=== PATIENT | male | born 1965 | race Hispanic/Latino ===

== ENCOUNTER 2023-10-10 21:30 | Emergency (ER) | payer OTHER, SELFPAY ==
[2023-10-10 21:31] VITALS: BMI 25.6
[2023-10-10 21:32] VITALS: BP 164/88
--- NOTE | 2023-10-10 22:05 | ED.GENMED ---
History of Present Illness
General
Chief Complaint: Blood Pressure Problem
Source: patient
Exam Limitations: none
Time Seen by Provider: 10/10/23 21:44
Travel History
Have you had any contact with someone who has COVID-19?: No
Do you have any symptoms of coronavirus? Fever > 100 degrees, chills, cough, shortness of breath, sore throat, loss of taste or smell, muscle aches, or headache?: No
History of Present Illness
History of Present Illness:
This is a 58 year old male that comes in with multiple complaints. States that on Wednesday he went to see the PCP and his BP was high. State that he had been eating a lot of junk. States that the PCP told him to stop the junk and buy a BP machine to
check his BP daily. State that Wednesday- he was checking his BP and it remained elevated. Patient went back to the PCP on and he was started on Losartan 50mg daily. Patient also takes Amlodipine 10mg daily. States that he felt his BP
was still high and he has a sore throat. States that he also has a headache that goes across his forehead and he felt lightheaded. Denies any fever, chills, chest pain, SOB, abd pain, nausea, vomiting, diarrhea, dizziness, urinary burning.
Past History
Past History
ED Past Medical History: CVA, GERD, HTN, Hypercholesterolemia, NIDDM and Other (Chronic back pain, Cystitis, Pancreatitis, UTI, )
ED Past Surgical History: Orthopedic (Cervical fusion 12/04, circumcision, 2008), Urological (TURP) and Other (Guilherme fundoplication, umbilical hernia 2003)
Patient has exhibited threatening behavior?: No
Social History
Tobacco: Former smoker
Alcohol: None
Drug: None
Personal: Single (Common law marrage)
Living: with family
Employment: Not employed
Family History
Family History: CAD and Other ([employer] lymphoma)
Review of Systems
Review of Systems
All Other Systems: ROS reviewed and negative except as documented in HPI and ROS
Constitutional: Reports no symptoms; Denies fever or chills
EENT: Reports no symptoms
Respiratory: Reports no symptoms; Denies cough or trouble breathing
Cardiac: Reports no symptoms; Denies chest pain
ABD/GI: Reports no symptoms; Denies abdominal pain, nausea, vomiting or diarrhea
: Reports no symptoms; Denies dysuria, frequency or urgency
Musculoskeletal: Reports no symptoms
Skin: Reports no symptoms
Neurological: Reports headache; Denies dizzy
Psychiatric: Reports no symptoms
Phy Exam
General Physical Exam
General Presentation: well appearing and no apparent distress
General age: appears stated age
General Skin: warm and dry
General Habitus: normal
General Mental: alert
General Hydration: appears well hydrated
ENT Exam
ENT Exam: TM's normal, pharynx normal and neck supple
Eye Exam
Eye Exam: EOMI
Cardiovascular Exam
Cardiovascular Exam: regular rate/rhythm, no edema and normal peripheral pulses
Pulmonary Exam
Pulmonary Exam: lungs clear, no respiratory distress, no rales, chest non tender, no crackles, no rhonchi, no wheezing and no cough
Gastrointestinal Exam
Gastrointestinal Exam: normal bowel sounds, non tender, soft, no organomegaly, no pulsatile mass and non distended
Musculoskeletal Exam
Musculoskeletal Exam: full ROM (watch patient walk down hallway, steady on his feet) and no edema
Skin Exam
Skin Exam: normal color, warm/dry, no rash and no petechia
Psychiatric Exam
Psychiatric Exam: normal mood/affect
Course
Orders/Labs/Results
Orders:
Orders
10/10/23 22:05
Acetaminophen [Tylenol] 1,000 mg PO NOW STA
10/10/23 22:19
COVID-19 Antigen Urgent
Source: Nasal Swab
Complete Blood Count/With Diff Urgent
Comprehensive Metabolic Panel Urgent
10/10/23 22:24
Rapid Strep Group A Urgent
RUPERT Source: Throat/Pharynx
Specimen Description:
Date Specimen was Collected: 10/10/23
Time Specimen was Collected: 22:22
10/10/23 22:48
Diphenhydramine [Benadryl] 50 mg IV NOW STA
Famotidine [Pepcid] 20 mg IV NOW STA
Abnormal Lab Results
10/10/23
22:19
Absolute Monos (auto) 0.9 H 10^3/uL
(0.1-0.6)
Lymphocytes % 18.2 L %
(20.5-51.1)
Monocytes % 10.2 H %
(1.7-9.3)
Chloride 108 H mmol/L
(98-107)
BUN 22 H mg/dl
(9-20)
Glucose 142 H mg/dl
(70-99)
Alkaline Phosphatase 141 H U/L
(38-126)
10/10/23 22:19
10/10/23 22:19
Dehydration. Glucose nonfasting. Alk phos elevation. COVID negative. rapid strep negative.
Vital Signs
Initial and Last Documented VS:
Initial Vital Signs
Temp Pulse Resp BP Pulse Ox
98.1 F 78 22 164/88 96
10/10/23 21:32 10/10/23 21:32 10/10/23 21:32 10/10/23 21:32 10/10/23 21:32
Last Documented Vital Signs
Temp Pulse Resp BP Pulse Ox
98.1 F 85 20 144/86 97
10/10/23 21:32 10/10/23 22:32 10/10/23 22:32 10/10/23 22:32 10/10/23 23:18
MDM/Problems Addressed
Differential Diagnosis Includes:
COVID, Viral syndrome. Headache
MDM/Problems Addressed:
This is a 58 year old male that comes in with multiple complaints. States that his BP has been elevated and he has seen his PCP twice this past week. States that he was started on Losartan 50mg along with his Amlodipine 10mg. States that he felt his
BP was still high and he has a headache across his forehead and a sore throat.
Will check labs, COVID and rapid strep. Will monitor BP .
Called back into see patient. Patient feels that he is having an allergic reaction as he has a hive on the right cheek and below the right ear. Patient was not given any medication here. Will give Benadryl.
Back into see patient. Patient BP is 122/82. Patient two hives are also gone along with his headache. Will have patient follow up with the family doctor. Continue wit his BP medication as prescribed. Tylenol or any headache pain. Return with any
concerns.
Chronic conditions affecting care: HTN
Acute Exacerbation and/or Progression of Chronic Illness:
NA
*Pulse Oximetry
Patient hypoxic: no
*EKG
Interpreted by ED Provider?: NA
Rate: EKG- N/A
*Critical Care Note
Total Time (30-74mins, 75-104mins- exclusive of procedures): Not Applicable
ED Attending Note
-
Portions of this chart may have been created with voice recognition software.� Occasional wrong word or��sound alike� substitutions may have occurred due to the inherent limitations of voice recognition software.
Discharge Plan
Departure
Patient Disposition: Home (Routine Discharge)
Date of Disposition: 10/11/23
Time of Disposition: 00:02
Patient with high blood pressure during this ER visit?: Yes
Condition: Good
Covid-19: Not Applicable
Discharge Problem:
Hypertension, Sore throat (viral), Headache
Instructions: Sore Throat, Adult (DC), Headache, Adult (DC), BLOOD PRESSURE
Prescriptions:
No Action
oxycodone-acetaminophen [Percocet] 1 EACH tablet
1 ea PO Q6HPRN PRN (Reason: severe pain)
atorvastatin 10 MG tablet
10 mg PO QPM
oxycodone [OxyContin] 40 MG tablet,oral only,ext.rel.12 hr
40 mg PO Q8HPRN PRN (Reason: severe pain)
amlodipine 10 MG tablet
10 mg PO DAILY Qty: 30 0RF
tamsulosin 0.4 MG capsule
0.4 mg PO DAILY
finasteride 5 MG tablet
5 mg PO DAILY
empagliflozin [Jardiance] 25 MG tablet
25 mg PO DAILY
Referrals:
Can Oneal DO [Family Provider] - Follow up in 2-3 days
Activity Restrictions/Additional Instructions:
As discussed, your blood work shows slight Dehydration. You are COVID negative and your rapid strep is negative. Please increase your water intake to 8-8oz daily. No junk food. Continue with the medication you were prescribed by your family doctor
for your blood pressure. Follow up with the family doctor in the next 2- 3 days. This may be something viral starting that has caused your sore throat and a headache. You may use Tylenol 1000mg every 6 hours for any headache pain. IF YOU HAVE ANY
OTHER CONCERNS PLEASE RETURN TO THE EMERGENCY ROOM.
Interventions
Interventions:
*Risk Screen - Suicide Last Done: 10/10/23 21:32
*General Assessment Last Done: 10/10/23 22:32
*Neglect/Abuse Screening Last Done: 10/10/23 21:32
*ED COVID-19 Vaccine History Last Done: 10/10/23 22:32
ED- Cardiac Assessment Last Done: 10/10/23 22:34
ED-EENT Assessment Last Done: 10/10/23 22:40
ED- Neurological Assessment Last Done: 10/10/23 22:40
ED- Pulmonary Assessment Last Done: 10/10/23 22:40
[2023-10-10] MEDS: TYLENOL 1000 MG PO (22:12)
[2023-10-10 22:28] LABS: % Basophils 0.8 % (0-2); % Eosinophils 4.5 % (0-6); % Immature Granulocytes 0.3 % (0-0.5); % Lymphocytes 18.2 % (20.5-51.1); % Monocytes 10.2 % (1.7-9.3); Absolute Basophils 0.1 10^3/uL (0-0.2); Absolute Eosinophils 0.4 10^3/uL (0-0.7); Absolute Lymphocytes 1.7 10^3/uL (1.2-3.4); Absolute Monocytes 0.9 10^3/uL (0.1-0.6); Hematocrit 41.7 % (39.0-52.0); Hemoglobin 14.3 g/dL (13.0-18.0); Mean Corp Hgb Conc. 34.3 g/dL (33.0-37.0); Mean Corpuscular Hgb 28.9 pg (27.0-31.0); Mean Corpuscular Volume 84.2 fL (80.0-94.0); Mean Platelet Volume 10.2 fL (7.4-10.4); Nucleated Red Blood Cells % 0 % (-); Platelet Count 288 10^3/uL (130-400); Red Blood Cell Count 4.95 10^6/uL (4.70-6.10); Red Cell Dist. Width 13.2 % (11.5-14.5); White Blood Cell Count 9.1 10^3/uL (4.8-10.8)
[2023-10-10 22:32] VITALS: BP 144/86
[2023-10-10 22:43] LABS: ALT (SGPT) 34 U/L (0-50); AST (SGOT) 27 U/L (17-59); Alkaline Phosphatase 141 U/L (38-126); Blood Urea Nitrogen 22 mg/dl (9-20); Calcium 8.9 mg/dl (8.4-10.2); Carbon Dioxide 23 mmol/L (22-30); Chloride 108 mmol/L (98-107); Glucose 142 mg/dl (70-99); Potassium 3.5 mmol/L (3.5-5.1); Sodium 135 mmol/L (135-145); Total Bilirubin 0.5 mg/dl (0.2-1.3); Total Protein 6.9 g/dl (6.3-8.2); eGFR > 60.00
[2023-10-10 22:48] LABS: COVID-19 Antigen Negative (Negative)
[2023-10-10] MEDS: PEPCID 20 MG IV (23:04)
[2023-10-10] MEDS: BENADRYL 50 MG IV (23:06)
[2023-10-11] VITALS: BP 122/82
== END 2023-10-11 00:15 | disposition home or self-care (01) ==
LOC: EMR 21:30
PROVIDERS: Clinical Nurse Specialist Family Health; EMERGENCY PHYSICIAN Student in an Organized Health Care Education/Training Program; FAMILY PHYSICIAN Family Medicine
DX: R51.9 Headache, unspecified (principal); J02.9 Acute pharyngitis, unspecified; I10 Essential (primary) hypertension; Z87.891 Personal history of nicotine dependence
CPT/HCPCS: 99284; 96374; 96375; 80053; 85025; 87070; 87811; 87880

== ENCOUNTER 2023-11-09 20:12 | Emergency (ER) | payer OTHER, SELFPAY ==
[2023-11-09 20:43] VITALS: BP 131/85
--- NOTE | 2023-11-09 20:50 | ED.GENMED ---
History of Present Illness
General
Chief Complaint: Fever
Source: patient
Time Seen by Provider: 11/09/23 20:30
Travel History
Have you had any contact with someone who has COVID-19?: No
Do you have any symptoms of coronavirus? Fever > 100 degrees, chills, cough, shortness of breath, sore throat, loss of taste or smell, muscle aches, or headache?: No
History of Present Illness
History of Present Illness:
58-year-old male presents emergency room complaining of abdominal pain. Patient began having abdominal pain about 24 hours ago. He had a temperature at home of 104.5. He has had multiple sets of nausea, vomiting and diarrhea. Patient's daughter
was sick with GI symptoms earlier in the week. No urinary symptoms. Patient states the pain waxes and wanes in intensity
Past History
Past History
ED Past Medical History: CVA, GERD, HTN, Hypercholesterolemia, NIDDM and Other (Chronic back pain, Cystitis, Pancreatitis, UTI, )
ED Past Surgical History: Orthopedic (Cervical fusion 12/04, circumcision, 2008), Urological (TURP) and Other (Guilherme fundoplication, umbilical hernia 2003)
Patient has exhibited threatening behavior?: No
Social History
Tobacco: Former smoker
Alcohol: None
Drug: None
Personal: Single (Common law marrage)
Living: with family
Employment: Not employed
Family History
Family History: CAD and Other ([employer] lymphoma)
Phy Exam
Physical Exam
Physical Exam:
General: Awake, Alert, Oriented X3. No acute distress.
Vitals: unremarkable
Head: Atraumatic
Eyes: Pupils equal, EOMI
Throat: Airway intact, no exudates
Neck: Trachea midline
Lungs: Clear and equal b/l
Heart: Regular rate, no murmurs
Abd: Soft, mild diffuse tenderness, No pulsatile mass
Neuro: Nonfocal
Skin: Warm, dry, no rash
Extremities: pulses equal b/l, no edema
Course
Orders/Labs/Results
Orders:
Orders
11/09/23 20:48
0.9% Sodium Chloride 1000 ml [Nss] 1,000 ml IV BOLUS
Ketorolac [Toradol] 15 mg IV NOW STA
Ondansetron Injectable [Zofran] 4 mg IV NOW STA
11/09/23 20:50
CT Abd/pelvis W Iv Cont Urgent
Comment:
Reason For Exam: abd pain
11/09/23 21:00
Complete Blood Count/With Diff Urgent
Comprehensive Metabolic Panel Urgent
Lipase Urgent
11/09/23 21:32
Urinalysis Reflex To Culture Urgent
Date Specimen was Collected: 11/09/23
Time Specimen was Collected: 21:31
Urine Microscopic Reflex Cult Urgent
11/09/23 22:36
Dicyclomine [Bentyl] 20 mg PO NOW STA
HYDROmorphone [Dilaudid] 1 mg IV NOW STA
Abnormal Lab Results
11/09/23 11/09/23
21:00 21:32
Abs Immat Gran (auto) 0.1 H 10^3/uL
(0-0.05)
Absolute Neuts (auto) 8.4 H 10^3/uL
(1.4-6.5)
Absolute Lymphs (auto) 0.3 L 10^3/uL
(1.2-3.4)
Absolute Monos (auto) 0.8 H 10^3/uL
(0.1-0.6)
Neutrophils % 86.9 H %
(42.2-75.2)
Lymphocytes % 3.3 L %
(20.5-51.1)
Sodium 132 L mmol/L
(135-145)
Carbon Dioxide 16 L mmol/L
(22-30)
BUN 28 H mg/dl
(9-20)
Glucose 138 H mg/dl
(70-99)
ALT 57 H U/L
(0-50)
Urine Ketones 1+ A
(Negative)
Ur Occult Blood Reflex 2+ A
(Negative)
Urine RBC 3-6 A /HPF
(0-2)
Urine Bacteria (Reflex) Few A
(Negative)
Urine Glucose 3+ A
(Negative)
11/09/23 21:00
11/09/23 21:00
Vital Signs
Initial and Last Documented VS:
Initial Vital Signs
Temp Pulse Resp Pulse Ox
99.9 F 98 20 97
11/09/23 20:34 11/09/23 20:34 11/09/23 20:34 11/09/23 20:34
Last Documented Vital Signs
Temp Pulse Resp BP Pulse Ox
99.9 F 90 18 114/76 97
11/09/23 20:34 11/09/23 22:05 11/09/23 22:05 11/09/23 22:04 11/09/23 22:05
MDM/Problems Addressed
Differential Diagnosis Includes:
Viral gastritis, colitis, appendicitis
MDM/Problems Addressed:
Labs unremarkable, CT unremarkable. Based on symptoms very suggestive of acute viral gastroenteritis. Symptomatic care with antiemetics, antispasmodics
Acute Exacerbation and/or Progression of Chronic Illness: Other (Chronic pain syndrome)
*Radiology
Radiology exam reviewed: radiology read reviewed
*Pulse Oximetry
Patient hypoxic: no
*Critical Care Note
Total Time (30-74mins, 75-104mins- exclusive of procedures): Not Applicable
ED Attending Note
-
Portions of this chart may have been created with voice recognition software.� Occasional wrong word or��sound alike� substitutions may have occurred due to the inherent limitations of voice recognition software.
Discharge Plan
Departure
Patient Disposition: Home (Routine Discharge)
Date of Disposition: 11/09/23
Time of Disposition: 22:56
Patient with high blood pressure during this ER visit?: No
Condition: Good
Discharge Problem:
Acute diarrhea, Gastroenteritis, Acute nausea with nonbilious vomiting
Instructions: Viral gastroenteritis in adults
Prescriptions:
New
dicyclomine 20 mg tablet
20 mg PO QID PRN (Reason: abdominal pain) Qty: 20 0RF
ondansetron 4 mg tablet,disintegrating
4 mg PO ONCE PRN (Reason: nausea and vomiting) Qty: 10 0RF
No Action
oxycodone-acetaminophen [Percocet] 1 EACH tablet
1 ea PO Q6HPRN PRN (Reason: severe pain)
atorvastatin 10 MG tablet
10 mg PO QPM
oxycodone [OxyContin] 40 MG tablet,oral only,ext.rel.12 hr
10 mg PO Q8HPRN PRN (Reason: severe pain)
amlodipine 10 MG tablet
10 mg PO DAILY Qty: 30 0RF
finasteride 5 MG tablet
5 mg PO DAILY
Jardiance 25 MG tablet
25 mg PO DAILY
losartan 50 mg Tablet
50 mg PO DAILY
Rinvoq 15 mg Tablet Extended Release 24 Hr
15 mg PO DAILY
Referrals:
Can Oneal DO [Family Provider] -
Interventions
Interventions:
*Risk Screen - Suicide Last Done: 11/09/23 20:13
*General Assessment Last Done: 11/09/23 20:13
*Neglect/Abuse Screening Last Done: 11/09/23 20:13
ED- Fall Risk Assessment Last Done: 11/09/23 20:44
*ED COVID-19 Vaccine History Last Done: 11/09/23 20:13
*Nursing Disposition Last Done: 11/09/23 23:06
ED- Neurological Assessment Last Done: 11/09/23 20:44
ED-Skin Assessment Last Done: 11/09/23 20:44
Discharge Date and Time
Discharge Date/Time: 11/09/23 23:07
[2023-11-09] MEDS: TORADOL 15 MG IV (20:57)
[2023-11-09] MEDS: NSS 1000 IV (20:57)
[2023-11-09] MEDS: ZOFRAN 4 MG IV (20:58)
[2023-11-09 21:00] VITALS: BP 120/70
[2023-11-09 21:09] LABS: % Basophils 0.3 % (0-2); % Eosinophils 0.8 % (0-6); % Immature Granulocytes 0.5 % (0-0.5); % Lymphocytes 3.3 % (20.5-51.1); % Monocytes 8.2 % (1.7-9.3); % Neutrophils 86.9 % (42.2-75.2); Absolute Eosinophils 0.1 10^3/uL (0-0.7); Absolute Immature Granulocytes 0.1 10^3/uL (0-0.05); Absolute Lymphocytes 0.3 10^3/uL (1.2-3.4); Absolute Monocytes 0.8 10^3/uL (0.1-0.6); Absolute Neutrophils 8.4 10^3/uL (1.4-6.5); Hematocrit 42.5 % (39.0-52.0); Hemoglobin 14.5 g/dL (13.0-18.0); Mean Corp Hgb Conc. 34.1 g/dL (33.0-37.0); Mean Corpuscular Hgb 28.9 pg (27.0-31.0); Mean Corpuscular Volume 84.7 fL (80.0-94.0); Mean Platelet Volume 10.2 fL (7.4-10.4); Nucleated Red Blood Cells % 0 % (-); Platelet Count 248 10^3/uL (130-400); Red Blood Cell Count 5.02 10^6/uL (4.70-6.10); Red Cell Dist. Width 13.5 % (11.5-14.5); White Blood Cell Count 9.7 10^3/uL (4.8-10.8)
[2023-11-09 21:23] LABS: ALT (SGPT) 57 U/L (0-50); AST (SGOT) 28 U/L (17-59); Albumin 4.2 g/dl (3.5-5.0); Alkaline Phosphatase 94 U/L (38-126); Blood Urea Nitrogen 28 mg/dl (9-20); Calcium 8.9 mg/dl (8.4-10.2); Carbon Dioxide 16 mmol/L (22-30); Chloride 102 mmol/L (98-107); Glucose 138 mg/dl (70-99); Potassium 3.6 mmol/L (3.5-5.1); Sodium 132 mmol/L (135-145); Total Bilirubin 0.9 mg/dl (0.2-1.3); eGFR > 60.00
[2023-11-09 21:25] LABS: Lipase 80 U/L (23-300)
[2023-11-09 21:38] LABS: Urine Albumin Trace (Neg - Trace); Urine Bilirubin Negative (Negative); Urine Character Clear (Clear); Urine Color Yellow; Urine Glucose 3+ (Negative); Urine Ketone 1+ (Negative); Urine Leukocyte Negative (Negative); Urine Nitrite Negative (Negative); Urine Occult Blood 2+ (Negative); Urine Urobilinogen Negative (Neg - 1+)
[2023-11-09 21:57] LABS: Urine Squamous Cell 0-2 /LPF (Few)
[2023-11-09 21:58] LABS: Urine Bacteria Few (Negative); Urine White Cell 0-2 /HPF (0-5)
[2023-11-09 22:04] VITALS: BP 114/76
[2023-11-09] MEDS: BENTYL 20 MG PO (22:44)
[2023-11-09] MEDS: DILAUDID 1 MG IV (22:44)
== END 2023-11-09 23:07 | disposition home or self-care (01) ==
LOC: EMR 20:12
PROVIDERS: EMERGENCY PHYSICIAN Emergency Medicine; FAMILY PHYSICIAN Family Medicine
DX: A08.4 Viral intestinal infection, unspecified (principal); R19.7 Diarrhea, unspecified; R11.2 Nausea with vomiting, unspecified
CPT/HCPCS: 99285; 96374; 96375 ×2; 96361; 74177; 80053; 81003; 81015; 83690; 85025; Q9967

== ENCOUNTER → 2024-11-01 07:08 | Outpatient (REF) | payer OTHER, SELFPAY ==
[2024-11-01 09:51] LABS: % Basophils 0.6 % (0-2); % Eosinophils 3.1 % (0-6); % Immature Granulocytes 0.6 % (0-0.5); % Lymphocytes 17.9 % (20.5-51.1); % Monocytes 9.9 % (1.7-9.3); % Neutrophils 67.9 % (42.2-75.2); Absolute Basophils 0.1 10^3/uL (0-0.2); Absolute Eosinophils 0.3 10^3/uL (0-0.7); Absolute Immature Granulocytes 0.1 10^3/uL (0-0.05); Absolute Lymphocytes 1.7 10^3/uL (1.2-3.4); Absolute Monocytes 0.9 10^3/uL (0.1-0.6); Absolute Neutrophils 6.4 10^3/uL (1.4-6.5); Hematocrit 44.8 % (39.0-52.0); Mean Corp Hgb Conc. 33.5 g/dL (33.0-37.0); Mean Corpuscular Hgb 29.4 pg (27.0-31.0); Mean Corpuscular Volume 87.7 fL (80.0-94.0); Mean Platelet Volume 10.8 fL (7.4-10.4); Nucleated Red Blood Cells % 0 % (-); Platelet Count 289 10^3/uL (130-400); Red Blood Cell Count 5.11 10^6/uL (4.70-6.10); Red Cell Dist. Width 13.1 % (11.5-14.5); White Blood Cell Count 9.4 10^3/uL (4.8-10.8)
[2024-11-01 11:51] LABS: Glycohemoglobin (HgbA1c) 6.7 % (4.0-5.6)
[2024-11-01 12:47] LABS: ALT (SGPT) 30 U/L (0-50); AST (SGOT) 23 U/L (17-59); Albumin 4.6 g/dl (3.5-5.0); Alkaline Phosphatase 110 U/L (38-126); Blood Urea Nitrogen 19 mg/dl (9-20); Calcium 9.1 mg/dl (8.4-10.2); Carbon Dioxide 21 mmol/L (22-30); Chloride 104 mmol/L (98-107); Glucose 113 mg/dl (70-99); Potassium 3.9 mmol/L (3.5-5.1); Sodium 138 mmol/L (135-145); Total Bilirubin 0.7 mg/dl (0.2-1.3); Total Protein 7.2 g/dl (6.3-8.2); eGFR > 60.00
== END ==
LOC: HWLAB 07:08
PROVIDERS: ATTENDING PHYSICIAN Podiatrist Foot Surgery
DX: Z01.818 Encounter for other preprocedural examination (principal)
CPT/HCPCS: 36415; 80053; 83036; 85025; 93005

== ENCOUNTER → 2024-11-20 16:06 | Outpatient (REF) | payer OTHER, SELFPAY | LOC: CLAB 16:06 | PROVIDERS: ATTENDING PHYSICIAN Podiatrist Foot Surgery | DX: R22.41 Localized swelling, mass and lump, right lower limb (principal) | CPT/HCPCS: 88304 ==

== ENCOUNTER 2025-06-25 20:38 | Observation (INO) | payer OTHER, SELFPAY ==
[2025-06-25 15:37] VITALS: BP 136/82
[2025-06-25 15:52] LABS: Hematocrit 46.4 % (39.0-52.0); Hemoglobin 15.2 g/dL (13.0-18.0); Mean Corp Hgb Conc. 32.8 g/dL (33.0-37.0); Mean Corpuscular Volume 88.4 fL (80.0-94.0); Nucleated Red Blood Cells % 0 % (-); Platelet Count 278 10^3/uL (130-400); Red Cell Dist. Width 13.0 % (11.5-14.5)
[2025-06-25 16:06] VITALS: BMI 26.6
[2025-06-25 16:08] LABS: ALT (SGPT) 39 U/L (0-50); AST (SGOT) 27 U/L (17-59); Albumin 4.5 g/dl (3.5-5.0); Alkaline Phosphatase 108 U/L (38-126); Blood Urea Nitrogen 15 mg/dl (9-20); Calcium 9.0 mg/dl (8.4-10.2); Carbon Dioxide 25 mmol/L (22-30); Chloride 105 mmol/L (98-107); Estimated Creatinine Clearance 95 ml/min; Glucose 114 mg/dl (70-99); Potassium 3.7 mmol/L (3.5-5.1); Sodium 138 mmol/L (135-145); Total Protein 7.3 g/dl (6.3-8.2); eGFR > 60.00
[2025-06-25 16:42] VITALS: BP 148/86; BP 154/91; BP 161/89; PULSE 63; PULSE 65; PULSE 71
--- NOTE | 2025-06-25 16:43 | ED.GENMED ---
Addendum entered and electronically signed by Rios Nash MD 06/26/25 00:37:
ED Attending Note:
Patient with history of CVA, confirmed on MRI over 10 years ago, without any residual deficit, presents to ED secondary to sudden onset of blurred vision, lasting 2 to 3 minutes at home, with spontaneous resolution. Denies headache. Denies
dizziness. Denies difficulty with speech. Denies loss of sensation or weakness. Denies difficulty with ambulation. Denies recent illness. Denies recent change in medications or diet. Denies previous history of similar symptoms. At the time of
evaluation ED, patient is without any symptoms and has no complaints.
Physical Exam
General: no apparent distress, not acutely ill. afebrile
Head: nc/at. eomi
Neck: supple. no meningeal signs.
Heart: s1/s2 regular rate and rhythm
Lungs: no acute respiratory distress. clear bilaterally
Abdomen: normal bowel sounds. not tender.
Neuro: alert and oriented x 3. no focal neurological deficits. normal speech
Skin: no rash
Psychiatric: well kept. interactive and cooperative
Extremities: no edema. no calf tenderness.
CT head report reviewed and discussed with patient and on-call neurologist, . recommends admission for further eval and treatment, including MRI brain. At this time, recommends starting patient on aspirin and Plavix.
Original Note:
History of Present Illness
General
Chief Complaint: Dizziness
Source: patient
Exam Limitations: none
Time Seen by Provider: 06/25/25 16:27
Nursing documentation reviewed up to this point in time: agreed with
History of Present Illness
History of Present Illness:
Patient to the emergency department for evaluation after an episode of blurred vision earlier this morning. Patient states he just returned home after eating breakfast. States he was lying on the couch and developed a sudden onset of blurred
vision. He stood up and felt like he was having a panic attack, went to the window and opened it, and his symptoms subsided. States the entire event lasted less than 2 minutes. He denies any associated shortness of breath chest pain/pressure
headache dizziness nausea vomiting diaphoresis. He has remained asymptomatic. After discussing this event with his , she advised him to come to the emergency department for evaluation. He reports history of 'ministroke' 2011. At that time her
developed facial numbness, weakness to his right arm and leg. His symptoms resolved on own. He was admitted, neurology consult, MRI completed. MRI with possible small old lacunar infarct. He was placed on crestor and ASA, ,discharged home with dx
TIA. He denies any symtoms since. He denies any extremity weakness, numbness/tingling today. On exam he is alert oriented and in no distress.
Past History
Past History
ED Past Medical History: CVA, GERD, HTN, Hypercholesterolemia, NIDDM and Other (Chronic back pain, Cystitis, Pancreatitis, UTI, )
ED Past Surgical History: Orthopedic (Cervical fusion 12/04, circumcision, 2008), Urological (TURP) and Other (Guilherme fundoplication, umbilical hernia 2003)
Patient has exhibited threatening behavior?: No
Social History
Tobacco: Former smoker
Alcohol: None
Drug: None
Personal: Single (Common law marrage)
Living: with family
Employment: Not employed
Family History
Family History: CAD and Other ([employer] lymphoma)
Review of Systems
Review of Systems
Allergies reviewed?: Yes
All Other Systems: ROS reviewed and negative except as documented in HPI and ROS
Constitutional: Reports no symptoms
EENT: Reports no symptoms
Respiratory: Reports no symptoms
Cardiac: Reports no symptoms
ABD/GI: Reports no symptoms
: Reports no symptoms
Musculoskeletal: Reports no symptoms
Skin: Reports no symptoms
Neurological: Reports other (blurred vision this AM)
Psychiatric: Reports no symptoms
Phy Exam
General Physical Exam
General Presentation: well appearing and no apparent distress
General age: appears stated age
General Skin: warm and dry
General Habitus: normal
General Mental: alert
Cardiovascular Exam
Cardiovascular Exam: regular rate/rhythm and no edema
Pulmonary Exam
Pulmonary Exam: lungs clear and no respiratory distress
Neurological Exam
Neurological Exam: alert, oriented x3, CN II-XII intact, no sensory deficits and speech normal
NIH Stroke Score
Level of Consciousness: 0 - Alert
LOC questions: 0-Answers both correctly
LOC Commands: 0-Performs both correctly
Best Gaze: 0-Normal
Visual Stevenson: 0=Normal, no visual loss
Facial palsy: 0=Normal, symmetrical
Motor - Right Arm: 0=No drift 10 seconds
Motor - Left Arm: 0=No drift 10 seconds
Motor - Right Le-No drift 5 seconds
Motor - Left Le-No drift 5 seconds
Limb Ataxia: 0-Absent
Sensation: 0-Normal
Best Language: 0-No aphasia
Dysarthria: 0-Normal
Extinction and Inattention: 0-No abnormality
Total Score:: 0
Musculoskeletal Exam
Musculoskeletal Exam: full ROM and neuro vasc intact
Skin Exam
Skin Exam: normal color, warm/dry and no rash
Psychiatric Exam
Psychiatric Exam: normal mood/affect
Course
Orders/Labs/Results
Orders:
Orders
06/25/25 15:42
Complete Blood Count/With Diff Urgent
Comprehensive Metabolic Panel Urgent
06/25/25 16:42
Electrocardiogram (*1) Urgent
Reason for Study: Mitral Valve Prolapse
EKG- Treatment ONCE
Orthostatic VS- Treatment ONCE
06/25/25 17:27
CT Head W/o Iv Contrast Urgent
Comment:
Reason For Exam: vision changes
06/25/25 20:01
Aspirin 325 mg PO NOW STA
Clopidogrel Bisulfate [Plavix] 300 mg PO NOW STA
06/25/25 20:12
NEUROLOGY CONSULT Urgent
Consulting Provider: Robert Sanz
Was physician already notified: Yes
06/25/25 20:20
Admit/Transfer Patient As Directed
Co-Sign Provider:
Level of Care: Observation services
Assign to:: Telemetry
Physician / Group: Jerel
Diagnosis: TIA
Reason for Telemetry: CVA/TIA
Date to Stop Telemetry: 06/28/25
Time to Stop Telemetry: 11:00
PRN Pain Medication Management As Directed
May give lesser potent ordered pain med per pt: Yes
preference::
Protocol:: Medication orders for pain may be administered in a
manner that supports deferring to patient preference
when the pt is:
- Requesting an ordered lesser potent pain medication.
Least to most potent pain medications are defined
as: acetaminophen < NSAID < tramadol < opioids
(morphine, oxycodone, hydromorphone).
- Requesting a lesser dose of the same medication IF
ORDERED.
- Requesting a less intrusive route of administration
if both routes are prescribed by the provider (PO <
IV).
06/25/25 20:21
Code Status As Directed
Resuscitation Status: Full Code
06/25/25 21:32
Acetaminophen [Tylenol] 650 mg PO Q4HPRN PRN
Bisacodyl [Dulcolax] 10 mg RECTAL [id number] PRN
Dextrose 50%-Water [Dextrose 50% Syringe] 12.5 grams IV [id number] PRN
Docusate W/Senna [Senokot-S] 1 tablet PO BIDPRN PRN
Glucagon [GlucaGen] 1 mg IM PRN PRN
Ondansetron Injectable [Zofran] 4 mg IV Q6HPRN PRN
Oxycodone [Roxicodone] 5 mg PO Q4HPRN PRN
Polyethylene Glycol Powder [Miralax] 17 grams PO DAILYPRN PRN
06/25/25 21:32
Echo 2D MMode Color/Doppler Routine
Reason for Study: tia
MRI Brain [MR Brain Without Contrast] Routine
Comment:
Reason For Exam: tia/cva
Recent pill cam endoscopy?: No
Activity As Directed
Activity Level: With Assistance
Bedside Glucose Monitoring As Directed
Frequency: AC&HS
Additional Instructions:: Change to q6h if pt on TPN, tube feeding or not eating
Neurological Checks As Directed
Frequency: Per unit guidelines
Pneumatic Compression Sleeves As Directed
Type: Knee high
Vital Signs As Directed
Frequency: Per unit guidelines
DX Deep Vein Thrombosis Video Routine
06/25/25 22:00
Oxycodone Controlled Release [Oxycontin (Controlled Release)] 10 mg PO Q8H
06/26/25 Breakfast
1800 calorie (15 carb) Diabetic
At Your Request: Full Participation
Basic Metabolic Panel IN AM
Cardiovascular Evaluation IN AM
Complete Blood Count/No Diff IN AM
Glycohemoglobin (HgbA1c) IN AM
Magnesium IN AM
06/26/25 07:30
Insulin Aspart Corrective Low [Novolog Flexpen-Low Resistance] See Protocol SC AC
06/26/25 08:00
Amlodipine [Norvasc] 10 mg PO DAILY
Aspirin Chewable [Low Strength Aspirin] 81 mg PO DAILY
Clopidogrel Bisulfate [Plavix] 75 mg PO DAILY
Dapagliflozin [Farxiga] 10 mg PO DAILY
Finasteride [Proscar] 5 mg PO DAILY
Losartan [Cozaar] 50 mg PO DAILY
upadacitinib [Rinvoq] See Dose Instructions PO DAILY
06/26/25 18:00
Atorvastatin [Lipitor] 10 mg PO QPM
06/28/25 11:00
DC Protocol for Telemetry ONCE
Abnormal Lab Results
06/25/25
15:42
MCHC 32.8 L g/dL
(33.0-37.0)
Abs Immat Gran (auto) 0.1 H 10^3/uL
(0-0.05)
Absolute Monos (auto) 0.7 H 10^3/uL
(0.1-0.6)
Immature Gran % 0.8 H %
(0-0.5)
Monocytes % 9.6 H %
(1.7-9.3)
Glucose 114 H mg/dl
(70-99)
06/25/25 15:42
06/25/25 15:42
Vital Signs
Initial and Last Documented VS:
Initial Vital Signs
Temp Pulse Resp BP Pulse Ox
98.0 F 68 16 136/82 98
06/25/25 15:37 06/25/25 15:37 06/25/25 15:37 06/25/25 15:37 06/25/25 15:37
Last Documented Vital Signs
Temp Pulse Resp BP Pulse Ox
97.9 F 57 20 134/80 98
06/25/25 23:17 06/25/25 23:17 06/25/25 23:17 06/25/25 23:17 06/25/25 23:17
*Radiology
Radiology exam reviewed: radiology read reviewed
*Pulse Oximetry
SaO2: 98
Oxygen Mode of Delivery: Room air
Patient hypoxic: no
*Critical Care Note
Total Time (30-74mins, 75-104mins- exclusive of procedures): Not Applicable
Update Note
Update Note:
Patient to the emergency department after experiencing a brief episode of blurred vision early this morning. His vision changes lasted less than 2 minutes. He had no associated symptoms. He has had no symptoms since. He has a prior history of
CVA in 2011. At that time he reported right sided facial numbness, right upper and lower extremity weakness. He was admitted here placed on a statin and aspirin. MRI was completed and indicated an area of chronic ischemic change versus a small
old lacunar infarct. He has had no further issues until his vision changes this morning. CT completed. He has a new 3 mm focus of decreased density within the right thalamus which is new since 2012. Acute to subacute infarct is possible.
Yvon was consulted. He recommends admission tonight, DAPT, MRI of the brain without contrast, and an echocardiogram. This patient was placed on a statin and daily aspirin in 2011. He continues with the statin but states he has not taken aspirin
for many years. He was given aspirin 325 mg in ED and placed on Plavix [address] mg. Discussed finding of CT and recommendations of neurology with patient. He is stable with admission plan. Vital signs remained stable. He remains asymptomatic. Case
discussed with Dr. Nash who also evaluated this patient. Patient is admitted to the hospital service.
ED Attending Note
-
Portions of this chart may have been created with voice recognition software.� Occasional wrong word or��sound alike� substitutions may have occurred due to the inherent limitations of voice recognition software.
Discharge Plan
Departure
Patient Disposition: Admit
Date of Disposition: 06/25/25
Time of Disposition: 20:09
Presentation/result/management discussed w/ accepting MD/DO: Hospitalist
Patient with high blood pressure during this ER visit?: Yes
Condition: Fair
Covid-19: Not Applicable
Discharge Problem:
TIA (transient ischemic attack), History of CVA (cerebrovascular accident)
Interventions
Interventions:
*Risk Screen - Suicide Last Done: 06/25/25 15:37
*General Assessment Last Done: 06/25/25 15:37
*Neglect/Abuse Screening Last Done: 06/25/25 15:37
*ED- Fall Risk Assessment Last Done: 06/25/25 16:02
*ED COVID-19 Vaccine History Last Done: 06/25/25 16:02
*ED Influenza Vaccine History Last Done: 06/25/25 16:02
*Nursing Disposition Last Done: 06/25/25 21:40
ED- Neurological Assessment Last Done: 06/25/25 16:02
ED- Cardiac Assessment Last Done: 06/25/25 16:02
ED Swallowing Screen Last Done: 06/25/25 20:16
Discharge Date and Time
Discharge Date/Time: 06/25/25 21:40
[2025-06-25 17:32] VITALS: BP 148/86
[2025-06-25] MEDS: ASPIRIN 325 MG PO (20:09)
[2025-06-25] MEDS: PLAVIX 300 MG PO (20:09)
--- NOTE | 2025-06-25 20:18 | HPS.HSE ---
Family Physician
-
Family Physician: Can Oneal
Chief Complaint
-
Dizziness
History of Present Illness
This is a 60-year-old male with past medical history significant for hypertension, hyperlipidemia, sxn-muhpfao-bensqcoff diabetes, prior stroke who presents to the emergency department with blurry vision.
Patient reported waking up in usual state of health. He was laying on the sofa when he suddenly developed blurry vision in both eyes. He says he could not see things clearly and there was darkness in his bilateral visual field. I got up in a
panicked state and walks to the window to get some fresh air. By time he got to the window said that the vision was improving and his symptoms really only lasted for about a minute before resolving. He denied any associated symptoms such as
headache nausea or vomiting. He denies any vertigo. He denies any numbness or tingling. He denies any facial asymmetry. He was able to speak clearly throughout the episode.
In the Emergency Department patient was afebrile, blood pressure was 140/80 with a pulse of 63 and he was satting 98% on room air. ECG showed sinus bradycardia at a rate of [address] or T wave changes. CT of the head shows old infarct in
the left lentiform and right thalamus but acute focus cannot be completely excluded. CBC was unremarkable. Electrolytes BUN and creatinine were all in the normal range.
Medical History
Past Medical History
Past Medical History: Reports GERD, HTN, Hypercholesterolemia, NIDDM and Other (BPH, neurogenic bladder, pancreatitis with pseudocyst)
Past Surgical History: Reports Orthopedic (Anterior cervical fusion), Urological (TURP) and Other (Gastric surgery)
Social History
Tobacco: Former Smoker
Alcohol: Occasional
Drug: None
Personal:
Living: With Family
Employment: Employed
Family History
Family History: Not pertinent
Allergies / Home Medications
Allergies reflects when Allergies were last updated in [facility].
Home Medications with original date entered in [facility]
Allergy/Medication List:
Allergies
Allergy/AdvReac Type Severity Reaction Status Date / Time
No Known Drug Allergies Allergy NONE Verified 10/10/23 21:34
Home Medications
atorvastatin 10 mg tablet 10 mg PO QPM High cholesterol 04/03/20
amlodipine 10 mg tablet 10 mg PO DAILY #30 tabs 04/10/20
finasteride 5 mg tablet 5 mg PO DAILY Urinary issue 12/24/20
empagliflozin 25 mg tablet (Jardiance) 25 mg PO DAILY 11/21/21
losartan 50 mg tablet 50 mg PO DAILY 11/09/23
upadacitinib 15 mg tablet,extended release 24 hr (Rinvoq) 15 mg PO DAILY 11/09/23
Review of Systems
-
Constitutional: Reports No Symptoms
EENT: Reports No Symptoms
Respiratory: Reports No Symptoms
Cardiac: Reports No Symptoms
Abdomen/GI: Reports No Symptoms
: Reports No Symptoms
Musculoskeletal: Reports No Symptoms
Skin: Reports No Symptoms
Neurological: Reports Other (Blurry vision)
Endocrine: Reports No Symptoms
Hematologic/Lymphatic: Reports No Symptoms
Psych: Reports No Symptoms
Physical Exam
Vital Signs
Vital Signs
Temp Pulse Resp BP Pulse Ox
98.0 F 63 16 148/86 98
06/25/25 15:37 06/25/25 17:32 06/25/25 17:32 06/25/25 17:32 06/25/25 17:32
Physical Exam
General: Well Developed, Well Nourished and No Apparent Distress
HEENT: NormoCephalic, Moist mucous membranes and Atraumatic
Respiratory: Clear
Cardiac: S1/S2 and Regular Rhythm; No Murmur or Rub
GI: Soft, Non Tender, Non Distended and Normal Bowel Sounds; No Organomegaly
Rectal: Deferred by Provider
Musculoskeletal: No Clubbing, No Cyanosis and No Edema
Skin: No Rash
Neuro: AO x 3 and Nonfocal/grossly intact; No Slurred Speech or Facial Droop
Psych: Calm
Laboratory Results
-
06/25/25 15:42
06/25/25 15:42
Laboratory Results
Total Bilirubin 0.4 mg/dl (0.2-1.3) 06/25/25 15:42
AST 27 U/L (17-59) 06/25/25 15:42
ALT 39 U/L (0-50) 06/25/25 15:42
Alkaline Phosphatase 108 U/L (38-126) 06/25/25 15:42
Data Reviewed
-
CT Scan: Report Reviewed by me
Medical Tests (Nuc Med, Echo, EKG etc): Image Personally Visualized and interpreted
Lab Data: Labs Reviewed by me
Old Records: Reviewed
Impression/Plan
-
IMPRESSION:
60-year-old with past medical history significant for kkg-pxylevh-vtiovoeom diabetes, hypertension, hyperlipidemia, prior CVA, former smoker presenting to the emergency department with episode of blurry vision lasting only about a minute with some
associated dizziness now completely resolved. NIHSS equals 0. CT of the head shows old infarcts in the left lentiform and right thalamus however subacute to acute infarct glucose cannot be ruled out in the right thalamus entirely. Labs
unremarkable stop ECG is not normal with sinus bradycardia at rate of [address] or T wave changes.
PLAN:
TIA -
-Admit to telemetry observation
-Started on aspirin and Plavix loading, will continue aspirin 81 and Plavix at this time
- MRI in a.m.
- Echo
- Carotid ultrasound
- neurochecks
- cardiovascular panel
- a1c
- neurology consult
DM II
- continue jardiance
- sliding scale insulin
HTN - stable
- continue norvasc and losartan
Arthritis
- continue home rinvoq
- continue his home oxycontin 10 q 8 with prn oxycodone
DVT PX - SCD
Code status - Full Code
[2025-06-25 20:23] VITALS: BP 153/99
[2025-06-25 21:40] VITALS: BP 144/93; BMI 25.8
[2025-06-25 21:40] LABS: Glucose - Point of Care 119 mg/dl (70-99)
[2025-06-25] MEDS: ROXICODONE 5 MG PO (22:39)
[2025-06-25] MEDS: OXYCONTIN (CONTROLLED RELEASE) PO (22:58)
[2025-06-25 23:17] VITALS: BP 134/80
[2025-06-26] MEDS: TYLENOL 650 MG PO (01:56)
[2025-06-26] MEDS: ROXICODONE 5 MG PO (02:41)
--- NOTE | 2025-06-26 02:42 | PTCARENOTE ---
At about 0140, the patient called RN to ask for sleep and pain medication. Melatonin was ordered and offered to the patient; however, he refused it stating 'that it doesn`t work' for him. RN explained per the nurse practitioner, she was not able to
order anything stronger due to the changes in his vision and being ruled out for neurological symptoms. The patient stated that he wanted to leave the hospital because he was 'in pain, hungry, and could not sleep' and would 'come back for his MRI in
the morning'. RN explained to the patient that if he leaves against medical advice, he will not be able to come back for the inpatient MRI and would have to go back through the ER for evaluation. RN gave patient crackers and reviewed his ordered
pain management. Patient was agreeable to staying in the hospital. RN administered Tylenol and 5mg of PRN Roxicodone. Blanquita FRANCHISE MANAGER at bedside to discuss plan of care with patient. Patient given the opportunity to ask questions; all questions
answered. Call españa within reach.
--- NOTE | 2025-06-26 02:45 | W.PN.UPDATE ---
Update Note
Progress Note Update
Patient requesting sleep aid, offered Melatonin which patient refused, requesting stronger medications. Patient stated wanting to leave AMA. Patient seen and addressed the consequences. Patient verbalizes understanding and stated he will stay.
[2025-06-26 03:02] VITALS: BP 132/83
[2025-06-26] MEDS: OXYCONTIN (CONTROLLED RELEASE) PO ×2 (06:06→23:38)
--- NOTE | 2025-06-26 06:15 | W.PN.UPDATE ---
Update Note
Progress Note Update
Patient requesting sleep aids, Melatonin ordered. Patient is requesting stronger sleep aids. When denied strong sleep aids, Patient requesting to leave AMA. Explained patient conditions at present and consequences of leaving and not able to get work
up done faster.
Advised alternative sleep techniques. Patient then apologetic and decided to stay.
[2025-06-26 07:05] VITALS: BP 133/83
[2025-06-26 07:35] LABS: Glucose - Point of Care 105 mg/dl (70-99)
[2025-06-26] MEDS: NOVOLOG FLEXPEN-LOW RESISTANCE SC ×2 (07:42→12:37)
[2025-06-26] MEDS: LOW STRENGTH ASPIRIN 81 MG PO (07:43)
[2025-06-26] MEDS: FARXIGA 10 MG PO (07:43)
[2025-06-26] MEDS: PROSCAR 5 MG PO (07:44)
[2025-06-26] MEDS: COZAAR 50 MG PO (07:44)
[2025-06-26] MEDS: PLAVIX 75 MG PO (07:44)
[2025-06-26] MEDS: NORVASC 10 MG PO (07:45)
[2025-06-26 08:13] LABS: Hematocrit 46.0 % (39.0-52.0); Hemoglobin 15.5 g/dL (13.0-18.0); Mean Corp Hgb Conc. 33.7 g/dL (33.0-37.0); Mean Corpuscular Volume 88.5 fL (80.0-94.0); Platelet Count 276 10^3/uL (130-400); Red Cell Dist. Width 12.9 % (11.5-14.5)
[2025-06-26 08:42] LABS: Blood Urea Nitrogen 14 mg/dl (9-20); Calcium 9.1 mg/dl (8.4-10.2); Carbon Dioxide 30 mmol/L (22-30); Chloride 101 mmol/L (98-107); Estimated Creatinine Clearance 83 ml/min; Glucose 113 mg/dl (70-99); HDL Cholesterol 72 mg/dl; LDL Cholesterol, Calculated 71 mg/dl; Magnesium 2.3 mg/dl (1.6-2.3); Potassium 3.9 mmol/L (3.5-5.1); Sodium 139 mmol/L (135-145); Very Low Density Lipoprotein 34 mg/dl (0-30); eGFR > 60.00
--- NOTE | 2025-06-26 08:42 | CON.NEURO4 ---
Addendum entered and electronically signed by Robert Sanz MD 06/26/25 20:53:
I have seen and examined the patient today along with the nurse practitioner Francy Romero, and I agree with her assessment and the management plan. Given below is my addendum.
The patient is a 60 years old male who presented to the hospital with complaint of transient blurry vision that lasted about a minute after which he returned to his baseline.
Neurologic examination:
The patient is alert and oriented x 3,
Speech is clear,
The cranial nerves II to XII grossly intact,
The motor strength is grossly 5/5 bilaterally in the upper and lower extremities,
The sensations are grossly intact,
The cerebellar examination does not show limb ataxia
ASSESSMENT AND PLAN:
The patient is a 60 years old male who presented with transient blurry vision lasting about a minute after which he returned to his baseline. The patient denies a total loss of vision and says it seemed that he had a blurry vision.
The MRI of the brain did not show any acute infarct.
The CTA of the head and neck did not show a large vessel occlusion.
The patient is going to be on aspirin 81 mg daily, Plavix 75 mg daily and atorvastatin 40 mg daily.
The echocardiogram report is pending.
Will follow-up.
Original Note:
Consultation - Neurology 4
-
CONSULTING PHYSICIAN: Robert Sanz MD
REFERRING PHYSICIAN: ER/RAVINDRA Herrera
DICTATED BY: RAVINDRA Deluca
DATE/TIME OF REQUEST: 06/25/25
DATE/TIME OF CONSULTATION: 06/26/25
Reason for Consultation: Vision loss
History of Present Illness:
This is a 60-year-old right-handed male who has presented to the hospital on 06/25/25 with report of transient vision loss. Patient reports that yesterday (06/25/25), he was in his usual state laying on the sofa watching TV after breakfast when
suddenly he developed blurry vision in both eyes accompanied by a 'darkness' in bilateral peripheral vision. This resolved spontaneously after about one minute and he returned to baseline. CT head was obtained on arrival and demonstrates his prior
left internal capsule and right thalamic infarcts, no acute abnormalities. NIHSS was 0. Not a candidate for TNK/IAT due to NIHSS 0, resolution of symptoms. He was loaded with DAPT in the ER. Today (06/26/25), he reports feeling at his baseline. He
denies any dizziness, headache, vision changes, speech/swallow difficulty, numbness, and weakness. He reports taking aspirin 81mg daily for a couple of years following his stroke in 2011 but then he stopped taking it.
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
Surgical History: Anterior cervical fusion, TURP, james fundoplication, umbilical hernia repair, circumcision 2008
Family History: Mother- C[employer] ACCOUNTANT lymphoma, stroke x2.
Social History: Former smoker. Occasional alcohol. Denies illicit drug use.
Allergies: No known allergies.
Home Medications: See below.
Review of Symptoms:
Patient denies any fever, headache, chest pain, shortness of breath, GI or symptoms.
�Per the HPI.�All systems are reviewed negative except above.
Physical Exam:
The patient is afebrile, abdomen is nondistended, breathing is unlabored, skin is warm and dry, no edema.
NIH Stroke Scale:
I performed the NIH stroke scale on the patient on 06/26/25 at 1000. The patient scored 0 points on the NIH stroke scale assessment, which were assigned as follows: See below.
Neurologic Examination:
The patient is awake, alert and oriented x 3. He is able to follow commands and answer questions appropriately. There is no aphasia or dysarthria. On cranial nerve assessment, pupils are 3 mm bilateral, round and reactive to light and
accommodation. Visual mejias are full. Extraocular movements are intact. Facial sensations are intact and bilaterally symmetrical, there is no facial asymmetry. Hearing is intact bilaterally to normal conversation volume. Tongue palate and uvula are
midline. Sternocleidomastoid strengths are full bilaterally. Motor strengths are 5/5 bilateral upper and lower extremities on medical research Mcdavid scale. There is no drift or involuntary movement noted. Deep tendon reflexes are 2+ bilateral
upper and lower extremities and Babinski is absent bilaterally. There was no extinction noted on double simultaneous stimulation. Coordination is intact by finger to nose bilaterally.
Lab Results: See below.
Neuro Imaging:
1. CT Head 06/25/25: 3 mm focus of decreased density within the posterior aspect of the left lentiform nucleus, most likely a small focus of old infarction, also present on prior CT in 2012. 3 mm focus of decreased density within the right thalamus,
new since 2012 CT exam, appearance most suggestive of a focus of old infarction. However, a focus of acute to subacute infarct is possible. Mild atrophy. Mild to moderate patchy leukomalacia. If there is high clinical concern for acute to subacute
infarct and further imaging evaluation is desired, consideration for MRI of the brain.
Differentials for the patient's presentation include:
1. Transient vision loss concerning for TIA or small ischemic stroke.
2. History of an old left internal capsule and right thalamic stroke.
Patient has the following risk factors for their symptoms: HTN, HLD, NIDDM
IV Tenecteplase/IAT candidacy: Not a candidate for TNK/IAT due to NIHSS 0, resolution of symptoms.
Recommendations:
-Continue DAPT with aspirin 81mg and clopidogrel 75mg daily for 21 days. After 21 days, stop clopidogrel and continue aspirin 81mg daily only.
-Goal normotension as symptom onset was 24 hours ago.
-CTA head/neck pending.
-MRI Brain noncontrast pending.
-TTE pending.
-LDL goal <70. LDL is 71. Home atorvastatin increased from 10mg to 40mg daily.
-Goal normoglycemia, hbA1c is pending.
-Checking blood work for metabolic abnormalities.
-NIHSS and neurological checks per unit guidelines.
-Provide patient with a stroke education packet.
-DVT prophylaxis.
Discussed patient care with: Dr. Sanz, the patient
Vital Signs and Labs
-
Vital Signs and Labs:
Vital Signs
Temp Pulse Resp BP Pulse Ox
97.7 F 65 16 133/83 94
06/26/25 07:05 06/26/25 07:45 06/26/25 07:05 06/26/25 07:45 06/26/25 07:05
Lab Results
06/26/25 07:45
06/26/25 07:45
Sodium 139 mmol/L (135-145) 06/26/25 07:45
Potassium 3.9 mmol/L (3.5-5.1) 06/26/25 07:45
BUN 14 mg/dl (9-20) 06/26/25 07:45
Glucose 113 mg/dl (70-99) H 06/26/25 07:45
Calcium 9.1 mg/dl (8.4-10.2) 06/26/25 07:45
LDL Cholesterol, Calc 71 mg/dl 06/26/25 07:45
Medications
-
Active Medications
Generic Name Dose Route Start Last Admin
Trade Name Freq PRN Reason Stop Dose Admin
Acetaminophen 650 mg 06/25/25 21:32 06/26/25 01:56
Acetaminophen 325 Mg Tablet PO 07/23/25 21:31 650 mg
Q4HPRN PRN Administration
mild pain/PAULSON/temp> 100.4F
Amlodipine Besylate 10 mg 06/26/25 08:00 06/26/25 07:45
Amlodipine 10 Mg Tablet PO 07/24/25 07:59 10 mg
DAILY LALITHA Administration
Aspirin 81 mg 06/26/25 08:00 06/26/25 07:43
Aspirin 81 Mg Chewable Tablet PO 07/24/25 07:59 81 mg
DAILY LALITHA Administration
Atorvastatin Calcium 10 mg 06/26/25 18:00
Atorvastatin (Lipitor) 10 Mg Tablet PO 07/24/25 17:59
QPM LALITHA
Bisacodyl 10 mg 06/25/25 21:32
Bisacodyl 10 Mg Rectal Suppository RECTAL 07/23/25 21:31
[id number] PRN
constipation
Clopidogrel Bisulfate 75 mg 06/26/25 08:00 06/26/25 07:44
Clopidogrel 75 Mg Tablet PO 07/24/25 07:59 75 mg
DAILY LALITHA Administration
Dapagliflozin 10 mg 06/26/25 08:00 06/26/25 07:43
Dapagliflozin (Farxiga) 10 Mg Tablet PO 07/24/25 07:59 10 mg
DAILY LALITHA Administration
Dextrose 12.5 grams 06/25/25 21:32
Dextrose 50% (0.5 Grams/Ml) 50 Ml Syringe IV 07/23/25 21:31
[id number] PRN
hypoglycemia
Protocol
Finasteride 5 mg 06/26/25 08:00 06/26/25 07:44
Finasteride 5 Mg Tablet PO 07/24/25 07:59 5 mg
DAILY LALITHA Administration
Glucagon 1 mg 06/25/25 21:32
Glucagon 1 Mg Vial IM 07/23/25 21:31
PRN PRN
hypoglycemia
Protocol
Insulin Aspart 0 units 06/26/25 07:30 06/26/25 07:42
Insulin Aspart Low Resistance 300 Units/3 Ml Pen.Injctr SC 07/24/25 07:29 Not Given
AC LALITHA
Protocol
Lorazepam 1 mg 06/25/25 21:32
Lorazepam 2 Mg/Ml Vial IV
ONCE PRN PRN
for MRI
Losartan Potassium 50 mg 06/26/25 08:00 06/26/25 07:44
Losartan 50 Mg Tablet PO 07/24/25 07:59 50 mg
DAILY LALITHA Administration
Upadacitinib [Rinvoq 0 mg 06/26/25 08:00
] 15 Mg Tablet Er Po PO 07/24/25 07:59
Daily DAILY LALITHA
Ondansetron HCl 4 mg 06/25/25 21:32
Ondansetron 4 Mg/2 Ml Vial IV 07/23/25 21:31
Q6HPRN PRN
nausea and vomiting
Oxycodone HCl 5 mg 06/25/25 21:32 06/26/25 02:41
Oxycodone 5 Mg Regular Release Tablet PO 07/09/25 21:31 5 mg
Q4HPRN PRN Administration
moderate pain
Oxycodone HCl 10 mg 06/25/25 22:00 06/26/25 06:06
Oxycontin 10 Mg Controlled Release Tablet PO 07/09/25 21:59 Not Given
Q8H LALITHA
Polyethylene Glycol 17 grams 06/25/25 21:32
Polyethylene Glycol Powder 17 Grams Packet PO 07/23/25 21:31
DAILYPRN PRN
constipation
Senna/Docusate Sodium 1 tablet 06/25/25 21:32
Docusate W/Senna (Victoria-Colace) Tablet PO 07/23/25 21:31
BIDPRN PRN
constipation
Sodium Chloride 0 flush 06/25/25 22:00
Sodium Chloride 0.9% (Flush) Syringe IV 07/23/25 21:59
PER PROTOCOL LALITHA
Sodium Chloride 0.5 ml 06/25/25 21:32
Nss (Pf) 10 Ml Vial For Ativan 1 Mg Dose IV
ONCE PRN PRN
IV LORAZEPAM DILUTION
Home Medications
�Medication �Instructions �Recorded
oxycodone-acetaminophen 10 mg-325 1 ea PO Q6HPRN PRN severe pain 02/13/19
mg tablet (Percocet)
atorvastatin 10 mg tablet 10 mg PO QPM High cholesterol 04/03/20
oxycodone 40 mg tablet,crush 5 mg PO Q8HPRN PRN severe pain 04/03/20
resistant,extended release 12 hr
(OxyContin)
amlodipine 10 mg tablet 10 mg PO DAILY #30 tabs 04/10/20
finasteride 5 mg tablet 5 mg PO DAILY Urinary issue 12/24/20
empagliflozin 25 mg tablet 25 mg PO DAILY Diabetes 11/21/21
(Jardiance)
dicyclomine 20 mg tablet 20 mg PO QID PRN abdominal pain 11/09/23
#20 tabs
losartan 50 mg tablet 50 mg PO DAILY Blood Pressure 11/09/23
ondansetron 4 mg disintegrating 4 mg PO ONCE PRN nausea and 11/09/23
tablet vomiting #10 tabs
upadacitinib 15 mg tablet,extended 15 mg PO DAILY Autoimmune Disorder 11/09/23
release 24 hr (Rinvoq)
NIH Stroke Score
Subsequent NIH Scale
Date of Subsequent NIH Scale: 06/26/25
Time of Subsequent NIH Scale: 10:00
NIH Stroke Score
Level of Consciousness: 0 - Alert
LOC Questions: 0-Answers both correctly
LOC Commands: 0-Performs both correctly
Best Horizontal Gaze: 0-Normal
Visual Mejias: 0=Normal, no visual loss
Facial Palsy: 0=Normal, symmetrical
Motor - Right Arm: 0=No drift 10 seconds
Motor - Left Arm: 0=No drift 10 seconds
Motor - Right Le-No drift 5 seconds
Motor - Left Le-No drift 5 seconds
Limb Ataxia: 0-Absent
Sensation: 0-Normal
Best Language: 0-No aphasia
Dysarthria: 0-Normal
Extinction and Inattention: 0-No abnormality
NIH Total Score:: 0
Modified Sharkey (mRS) Score
Modified Sharkey Scale (mRS): No symptoms
Score: 0
Alteplase Contraindication
Inclusion and Exclusion criteria reviewed: Yes
IAT Contraindications: NIHSS < 6
[2025-06-26 08:51] LABS: Glycohemoglobin (HgbA1c) 6.8 % (4.0-5.9)
[2025-06-26 11:31] VITALS: BP 168/91
[2025-06-26 11:32] LABS: Ferritin 80.9 ng/ml (17.9-464.0)
[2025-06-26 12:30] LABS: Glucose - Point of Care 102 mg/dl (70-99)
[2025-06-26] MEDS: ATIVAN 1 MG IV (12:42)
--- NOTE | 2025-06-26 13:29 | W.PN.HOSP.TC ---
Today's Communication/Plan
-
await MR brain report
await cardiology input
Assessment / Plan
Assessment / Plan
Episode of visual changes
-Episode of visual blurriness lasting 2 to 3 minutes. Patient stated of this being bilateral in nature.
-CT head showing old stroke involving left lentiform nucleus
-Echocardiogram done, cardiology reported patient have possible bubble study. Official reading pending
-MRI brain report is pending
-CTA head and neck did not show any carotid arterial occlusion. Hypoplastic right vertebral artery.
-Neurology consulted for further evaluation and help.
-Difficult to explain bilateral visual changes due to TIA/CVA
-Neurology recommending patient to be maintained on aspirin and Plavix for 21 days f/ued by asa.
DM II
-a1c of 6.8
- continue jardiance
- sliding scale insulin
Essential HTN - stable
- continue norvasc and losartan
Arthritis
- continue home rinvoq
- continue his home oxycontin 10 q 8 with prn oxycodone
DVT PX - SCD
Code status - Full Code
Anticipated Discharge: Within 24 hours
Subjective/Interval History
-
Date of Service: June 26, 2025
no further episode of vision changes
no new neurological symptoms reported
Objective Data
-
Labs:
Laboratory Results
06/26/25
07:45
WBC 7.4
Hgb 15.5
Hct 46.0
Plt Count 276
Sodium 139
Potassium 3.9
Chloride 101
Carbon Dioxide 30
BUN 14
Creatinine 0.8
Glucose 113 H
Calcium 9.1
Vital Signs:
Vital Signs
Temp Pulse Resp BP Pulse Ox
98.1 F 68 18 168/91 98
06/26/25 11:31 06/26/25 11:31 06/26/25 11:31 06/26/25 11:31 06/26/25 11:31
I&O
06/25/25 06/26/25 06/27/25
06:59 06:59 06:59
Intake Total 480 / 480
Balance 480 / 480
Review of Systems
-
Respiratory: Reports No Symptoms
Cardiac: Reports No Symptoms
Abdomen/GI: Reports No Symptoms
Physical Exam
-
General: No Apparent Distress and Comfortable
HEENT: Negative Oxygen
Musculoskeletal: No Edema
Neuro: Awake, Alert, Oriented, No Motor Deficits and Nonfocal/Grossly Intact
Psych: Calm
[2025-06-26 14:01] LABS: Folate 14.8 ng/ml (2.76-20); Vitamin B12 574 pg/ml (239-931)
--- NOTE | 2025-06-26 14:59 | W.PN.UPDATE ---
Update Note
Progress Note Update
Consult dictated
PFO suspected by echo
Per neurology: Transient vision loss concerning for TIA or small ischemic stroke
HTN
Diabetes/prediabetes
If neurology believes there is a significant likelihood that this from a paradoxical embolic event we will progress to SOM and outpatient evalution
If lacunae infarct we would suggest antiplatelet medications and risk factor modification
[2025-06-26 15:07] VITALS: BP 154/83
--- NOTE | 2025-06-26 15:44 | CM ---
CM reviewed chart, patient seen bedside, initial assessment completed.
Patient is a 60-year-old male with past medical history significant for hypertension, hyperlipidemia, fke-xvsktin-okyujqklq diabetes, prior stroke who presents to the emergency department with blurry vision.
Patient resides with his son whom he cares for (son is Autistic) in an apartment, second floor, no elevator.
Patient denies use of DME, denies VN/SNF.
PCP Can Oneal, Pharmacy [facility], confirms prescription coverage.
Patient denies insecurities at home.
OROZCO form verbally reviewed, refused to sign, placed in chart.
CM will continue to follow for all d/c needs.
Plan; home no needs
[2025-06-26] MEDS: OXYCONTIN (CONTROLLED RELEASE) 10 MG PO (15:50)
[2025-06-26 16:23] LABS: Glucose - Point of Care 205 mg/dl (70-99)
[2025-06-26] MEDS: NOVOLOG FLEXPEN-LOW RESISTANCE 2 UNITS SC (17:50)
[2025-06-26] MEDS: LIPITOR 40 MG PO (17:59)
[2025-06-26 20:05] VITALS: BP 146/94
[2025-06-26 21:36] LABS: Glucose - Point of Care 160 mg/dl (70-99)
[2025-06-26 23:32] VITALS: BP 141/88
[2025-06-26] MEDS: ATIVAN 0.5 MG PO (23:38)
--- NOTE | 2025-06-26 23:44 | PTCARENOTE ---
Patient called at 2145 for assistance with a shower. [employer] notified and an 'ok to shower' order was placed. RN covered the patient`s IV site and removed the telemetry monitoring prior. Patient showered with assistance. Patient also requested something
to help him sleep; [employer]ER made aware. See MAR for medication administration.
--- NOTE | 2025-06-27 02:48 | W.PN.UPDATE ---
Update Note
Progress Note Update
Patient insisting to shower and requesting something to help stay calm and sleep. Patient anxious and requesting Ativan to help stay calm and sleep. Diagnoses and conditions explained last night.
will order Ativan POx1 at present.
[2025-06-27 03:16] VITALS: BP 137/83
[2025-06-27 05:57] LABS: Glucose - Point of Care 115 mg/dl (70-99)
[2025-06-27] MEDS: OXYCONTIN (CONTROLLED RELEASE) 10 MG PO (06:00)
[2025-06-27 07:05] VITALS: BP 123/70
[2025-06-27] MEDS: COZAAR 50 MG PO (08:07)
[2025-06-27] MEDS: LOW STRENGTH ASPIRIN 81 MG PO (08:07)
[2025-06-27] MEDS: FARXIGA 10 MG PO (08:07)
[2025-06-27] MEDS: NORVASC 10 MG PO (08:08)
[2025-06-27] MEDS: PROSCAR 5 MG PO (08:08)
[2025-06-27] MEDS: PLAVIX 75 MG PO (08:08)
--- NOTE | 2025-06-27 09:55 | W.PN.CD ---
Today's Communication / Plan
-
Cardiology will sign off
I reviewed goal BP, exercise, LDL goals
No cardiology followup needed
Impression / Plan
-
1. PFO suspected by echo
- No new stroke on MRI, old lacunae
- ROPE score very low
- No role for PFO closure
2. Hypertension.
3. Diabetes.
4. Transient visual loss concerning for TIA or small stroke.
Physical Exam
Vital Signs/Labs
Vital Signs
Temp Pulse Resp BP Pulse Ox
97.6 F 62 18 123/70 98
06/27/25 07:05 06/27/25 07:05 06/27/25 07:05 06/27/25 07:05 06/27/25 08:20
06/26/25 06/27/25 06/28/25
06:59 06:59 06:59
Actual Weight 70.307 kg
06/26/25 07:45
06/26/25 07:45
Magnesium 2.3 mg/dl (1.6-2.3) 06/26/25 07:45
Triglycerides 173 mg/dl (10-149) H 06/26/25 07:45
LDL Cholesterol, Calc 71 mg/dl 06/26/25 07:45
VLDL Cholesterol, Calc 34 mg/dl (0-30) H 06/26/25 07:45
HDL Cholesterol 72 mg/dl 06/26/25 07:45
Physical Exam
Constitutional: No acute distress
EENT: Anicteric
Cardiovascular: Rhythm & rate is regular and Pedal edema is absent
Respiratory: Respiratory effort normal and Lungs clear to auscul.
GI: Soft and Distention absent
Neuro/Psych: AO x 3 and Motor deficits absent
Data Reviewed
-
Date of Service: June 27, 2025
[2025-06-27 11:05] VITALS: BP 130/91
--- NOTE | 2025-06-27 11:55 | CM ---
CM reviewed chart, patient for d/c today.
No needs, has transport home.
Plan; home no needs
--- NOTE | 2025-06-27 16:03 | W.DCSUMMARY ---
Discharge Summary
Discharge Data
Date of Admission: 06/25/25
Date of Discharge: 06/27/25
-
Pending Results: No
Hospital Course
Discharging Physician : Dr Sukumar Talley
Disposition : To home
Primary care physician : Dr Can Oneal
Principal Discharge diagnosis :
Bilateral visual changes
Patent brock ovale
Chronic Discharge diagnosis :
Type 2 diabetes mellitus
Benign prostatic hyperplasia
Essential hypertension
Hyperlipidemia
Physical examination:
GEN: aox3
Abd: N BS, soft, nontender, nondistended
Neuro: No motor or sensory deficits
Ext: No edema
Hospital Course :
Patient is a 60-year-old male with no significant past medical history except mentioned above came to ER with new onset of bilateral visual blurriness lasting for less than 5 minutes. Patient denies of having any previous episodes of transient
ischemic attack/stroke. In ER patient had a CT head which ruled out any acute issues. Neurology was involved in care and was recommended to undergo further neurological testing. Patient ended up having a follow-up CTA head and neck brain MRI and
echocardiogram. CTA head and neck and MRI brain was normal and there was no new stroke. Patient echocardiogram showed a small PFO. Cardiology was involved in care who recommended further workup if patient symptom felt to be related to paradoxical
emboli. A lower extremity venous Doppler was done which ruled out any clot. Trans esophageal echocardiogram was deferred at this admission. Neurology recommended for patient to be maintained on dual antiplatelet therapy for 21 days followed by
aspirin. Patient already on Lipitor low-dose of which was increased to 40 g daily at discharge. Patient to follow-up with cardiology in office as needed basis.
Important imaging findings :
None
Procedure findings :
None
Discharge Plan
-
Patient Disposition: Home (Routine Discharge)
Discharge Diagnosis/Procedures: TIA, Vision changes
Condition: Fair
Diet: Diabetic, Carb Controlled
Activity: As tolerated
Driving Restrictions: As prior to admission
Bathing Restrictions: OK to Shower
Referrals:
Can Oneal DO [Family Provider, Family Practice] - in one week
Michael Duarte MD [Active, Cardiology]
Referral Note: Please call for a new patient appointment as needed basis.
Prescriptions:
New
atorvastatin [Lipitor] 40 mg tablet
40 mg PO DAILY Qty: 30 2RF
aspirin 81 mg capsule
81 mg PO DAILY Qty: 30 2RF
clopidogrel [Plavix] 75 mg tablet
75 mg PO DAILY Qty: 21 0RF
Continued
oxycodone-acetaminophen [Percocet] 1 EACH tablet
1 ea PO Q6HPRN PRN (Reason: severe pain)
oxycodone [OxyContin] 40 MG tablet,oral only,ext.rel.12 hr
5 mg PO Q8HPRN PRN (Reason: severe pain)
amlodipine 10 MG tablet
10 mg PO DAILY Qty: 30 0RF
finasteride 5 MG tablet
5 mg PO DAILY
Jardiance 25 MG tablet
25 mg PO DAILY
losartan 50 mg Tablet
50 mg PO DAILY
Rinvoq 15 mg Tablet Extended Release 24 Hr
15 mg PO DAILY
dicyclomine 20 mg tablet
20 mg PO QID PRN (Reason: abdominal pain) Qty: 20 0RF
ondansetron 4 mg tablet,disintegrating
4 mg PO ONCE PRN (Reason: nausea and vomiting) Qty: 10 0RF
Discontinued
atorvastatin 10 MG tablet
10 mg PO QPM
Discharge Orders:
Discharge Patient (As Directed); Ordered 06/27/25
Ordered By: Sukumar Talley
Discharge Date and Time
Discharge Date/Time: 06/27/25 11:35
Print Language: SLOVAK
== END 2025-06-27 11:35 | disposition home or self-care (01) ==
LOC: 4 WEST ACU 20:38
PROVIDERS: Emergency Medicine; ADMITTING PHYSICIAN Internal Medicine; ATTENDING PHYSICIAN Hospitalist; CONSULT PHYSICIAN Internal Medicine Cardiovascular Disease; CONSULT PHYSICIAN Psychiatry & Neurology Neurology; EMERGENCY PHYSICIAN Emergency Medicine; FAMILY PHYSICIAN Family Medicine
DX: G45.9 Transient cerebral ischemic attack, unspecified (principal); H53.8 Other visual disturbances; R53.1 Weakness; E78.2 Mixed hyperlipidemia; I10 Essential (primary) hypertension; G89.29 Other chronic pain; E11.9 Type 2 diabetes mellitus without complications; I34.1 Nonrheumatic mitral (valve) prolapse; K21.9 Gastro-esophageal reflux disease without esophagitis; Q21.12 Patent foramen ovale; M06.9 Rheumatoid arthritis, unspecified; R00.1 Bradycardia, unspecified; M19.90 Unspecified osteoarthritis, unspecified site; H53.129 Transient visual loss, unspecified eye; N31.9 Neuromuscular dysfunction of bladder, unspecified; N40.0 Benign prostatic hyperplasia without lower urinary tract symptoms; I45.10 Unspecified right bundle-branch block; G31.9 Degenerative disease of nervous system, unspecified; Z87.440 Personal history of urinary (tract) infections; Z87.19 Personal history of other diseases of the digestive system; Z86.73 Personal history of transient ischemic attack (TIA), and cerebral infarction without residual deficits; Z87.891 Personal history of nicotine dependence; Z82.49 Family history of ischemic heart disease and other diseases of the circulatory system; Z80.7 Family history of other malignant neoplasms of lymphoid, hematopoietic and related tissues; Z98.1 Arthrodesis status; Z90.79 Acquired absence of other genital organ(s); Z79.84 Long term (current) use of oral hypoglycemic drugs; Z79.899 Other long term (current) drug therapy; Z82.3 Family history of stroke
CPT/HCPCS: 70450; 70496; 70498; 70551; 80048; 80053; 80061; 82607; 82728; 82746; 82962; 83036; 83735; 84443; 85025; 85027; 87070; 93005; 93307; 93970; 99285; G0378; Q9967

== ENCOUNTER 2025-07-07 12:22 | Emergency (ER) | payer OTHER, SELFPAY ==
[2025-07-07 12:28] VITALS: BP 166/94
--- NOTE | 2025-07-07 13:05 | ED.GENMED ---
History of Present Illness
<Mei Jon MD, Resident - Last Filed: 07/07/25 16:23>
General
Chief Complaint: Visual Problem
Source: patient
Exam Limitations: none
Time Seen by Provider: 07/07/25 12:51
Nursing documentation reviewed up to this point in time: agreed with
History of Present Illness
History of Present Illness:
60yo M with a hx of prior TIA, HTN, HLD, DM, & recent admission for transient blurry vision (w/u negative for CVA) who presents s/p 30second episode earlier today of transient blurry vision.
Pt presented to ED on 06/25 with blurry vision episode lasting ~30 seconds. Cannot confirm if bilateral or unilateral, but states it was likely bilateral. Pt was admitted through 06/27, during which time he underwent an extensive w/u including
peripheral vascular US, CTA head/neck, MRI brain, echo w bubble study, head CT. Findings were negative for acute/new CVA. No significant carotid artery stenosis.
Pertinent findings were:
- Positive bubble study for right to left shunting at the level of the fossa ovalis.
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
Pt was discharged on 21day course of aspirin & plavix, and his atorvastatin dose was increased to 40mg. On discharge & at PCP f/u appt, pt was told to return to ED if sx recurred.
This am, he experienced a similar ~30 episode of blurry vision. States that he also felt 'off' and slightly dizzy during it. Denies focal weakness, numbness, tingling, or PAULSON during the episode. Very mild PAULSON at presentation. Vision is returned to
baseline at time of eval. Denies any missed medications. Denies any palpitations or CP.
Past History
<Mei Jon MD, Resident - Last Filed: 07/07/25 16:23>
Past History
ED Past Medical History: CVA, GERD, HTN, Hypercholesterolemia, NIDDM and Other (Chronic back pain, Cystitis, Pancreatitis, UTI, )
ED Past Surgical History: Orthopedic (Cervical fusion 12/04, circumcision, 2008), Urological (TURP) and Other (Guilherme fundoplication, umbilical hernia 2003)
Patient has exhibited threatening behavior?: No
Social History
Tobacco: Former smoker
Alcohol: None
Drug: None
Personal: Single (Common law marrage)
Living: with family
Employment: Not employed
Family History
Family History: CAD and Other ([employer] lymphoma)
Phy Exam
<Mei Jon MD, Resident - Last Filed: 07/07/25 16:23>
General Physical Exam
General Presentation: well appearing and no apparent distress
General age: appears stated age
General Skin: warm and dry
General Habitus: normal
General Mental: alert
General Hydration: appears well hydrated
Cardiovascular Exam
Cardiovascular Exam: regular rate/rhythm and no edema
Heart Sounds: normal
Pulmonary Exam
Pulmonary Exam: no respiratory distress
Gastrointestinal Exam
Gastrointestinal Exam: non distended
Neurological Exam
Neurological Exam: alert, CN II-XII intact and speech normal
Skin Exam
Skin Exam: normal color
Psychiatric Exam
Psychiatric Exam: anxious
Course
<Mei Jon MD, Resident - Last Filed: 07/07/25 16:23>
Orders/Labs/Results
Orders:
Orders
07/07/25 13:36
CT Head W/o Iv Contrast Urgent
Comment:
Reason For Exam: blurred vision
Vital Signs
Initial and Last Documented VS:
Initial Vital Signs
Temp Pulse Resp BP Pulse Ox
98.5 F 74 16 166/94 98
07/07/25 12:28 07/07/25 12:28 07/07/25 12:28 07/07/25 12:28 07/07/25 12:28
Last Documented Vital Signs
Temp Pulse Resp BP Pulse Ox
98.5 F 64 16 125/83 98
07/07/25 12:28 07/07/25 15:00 07/07/25 15:00 07/07/25 15:00 07/07/25 13:17
<Adonis Scott DO - Last Filed: 07/07/25 14:09>
Orders/Labs/Results
Orders:
Orders
07/07/25 13:36
CT Head W/o Iv Contrast Urgent
Comment:
Reason For Exam: blurred vision
Vital Signs
Initial and Last Documented VS:
Initial Vital Signs
Temp Pulse Resp BP Pulse Ox
98.5 F 74 16 166/94 98
07/07/25 12:28 07/07/25 12:28 07/07/25 12:28 07/07/25 12:28 07/07/25 12:28
Last Documented Vital Signs
Temp Pulse Resp BP Pulse Ox
98.5 F 64 16 125/83 98
07/07/25 12:28 07/07/25 15:00 07/07/25 15:00 07/07/25 15:00 07/07/25 13:17
<Mei Jon MD, Resident - Last Filed: 07/07/25 16:23>
MDM/Problems Addressed
Differential Diagnosis Includes:
Ddx:
Transient vision blurriness/dizziness 2/2 reduced flow through known hypoplastic vertebral artery (supplies occipital lobe & cerebellum), potentially triggered by exertion or position
TIA
CVA w embolus via PFO
Unlikely, r/o:
Seizure
Infectious encephalitis
Substance use
MDM/Problems Addressed:
- Continue aspirin, plavix, statin
- Neurology referral for f/u
- Refer to cards for PFO closure procedure
Chronic conditions affecting care:
chronic ASCVD risk factors
Chronic conditions affecting care: DM, HTN and CAD
<Mei Jon MD, Resident - Last Filed: 07/07/25 16:23>
*Pulse Oximetry
SaO2: 98
Oxygen Mode of Delivery: Room air
Patient hypoxic: no
*Critical Care Note
Total Time (30-74mins, 75-104mins- exclusive of procedures): Not Applicable
<Mei Jon MD, Resident - Last Filed: 07/07/25 16:23>
Update Note
Update Note:
CT head without acute abnormalities :
No acute intracranial abnormality noted. No significant change. Nonspecific leukoaraiosis. Tiny right thalamic chronic lacunar infarct. Stable small perivascular space versus chronic lacunar infarct at the posterior margin of the left lentiform
nucleus.
ED Attending Note
<Mei Jon MD, Resident - Last Filed: 07/07/25 16:23>
-
Portions of this chart may have been created with voice recognition software.� Occasional wrong word or��sound alike� substitutions may have occurred due to the inherent limitations of voice recognition software.
<Adonis Scott, DO - Last Filed: 07/07/25 14:09>
ED Attending Note
Patient seen and examined by attending physician: Yes
I performed a history and physical exam of patient and discussed management with resident, I reviewed resident's note and agree with documented findings and plan of care.: Yes
ED Attending Note:
I agree with Mei's note
Patient had an episode of blurred vision. No focal logic deficits. Recent hospitalization for similar symptoms. Had a TIA workup. Ultimately recommended to have Plavix and aspirin. However no objective abnormalities were found.
Nonfocal neurologic exam.
Seriously doubt the patient's blurred vision represents an ischemic event.
Discharge Plan
Departure
Patient Disposition: Home (Routine Discharge)
Date of Disposition: 07/07/25
Time of Disposition: 16:23
Patient with high blood pressure during this ER visit?: No
Condition: Good
Covid-19: Not Applicable
Discharge Problem:
Blurred vision, bilateral
Prescriptions:
No Action
oxycodone-acetaminophen [Percocet] 1 EACH tablet
1 ea PO Q6HPRN PRN (Reason: severe pain)
oxycodone [OxyContin] 40 MG tablet,oral only,ext.rel.12 hr
5 mg PO Q8HPRN PRN (Reason: severe pain)
amlodipine 10 MG tablet
10 mg PO DAILY Qty: 30 0RF
finasteride 5 MG tablet
5 mg PO DAILY
Jardiance 25 MG tablet
25 mg PO DAILY
losartan 50 mg Tablet
50 mg PO DAILY
Rinvoq 15 mg Tablet Extended Release 24 Hr
15 mg PO DAILY
dicyclomine 20 mg tablet
20 mg PO QID PRN (Reason: abdominal pain) Qty: 20 0RF
ondansetron 4 mg tablet,disintegrating
4 mg PO ONCE PRN (Reason: nausea and vomiting) Qty: 10 0RF
atorvastatin [Lipitor] 40 mg tablet
40 mg PO DAILY Qty: 30 2RF
aspirin 81 mg capsule
81 mg PO DAILY Qty: 30 2RF
clopidogrel [Plavix] 75 mg tablet
75 mg PO DAILY Qty: 21 0RF
Referrals:
Jim Story MD [Active, Ophthalmology] - Follow up in 10 days
UNKNOWN,NO INTERVIEW [Unknown Provider]
Activity Restrictions/Additional Instructions:
You were seen in the ED for an episode of blurry vision. Your head CT demonstrated no abnormalities. We have included referral information for an hoist cylinder loader, who you can see for follow-up of the blurry vision. Continue taking the aspirin,
plavix, and atorvastatin as previously prescribed.
Return to the ED if you have severe chest pain, shortness of breath, or episodes of one-sided numbness or weakness in your body.
Interventions
Interventions:
*Risk Screen - Suicide Last Done: 07/07/25 12:28
*General Assessment Last Done: 07/07/25 12:56
*Neglect/Abuse Screening Last Done: 07/07/25 12:28
*ED- Fall Risk Assessment Last Done: 07/07/25 12:56
*ED COVID-19 Vaccine History Last Done: 07/07/25 12:55
*ED Influenza Vaccine History Last Done: 07/07/25 12:55
ED- Neurological Assessment Last Done: 07/07/25 12:56
ED-EENT Assessment Last Done: 07/07/25 12:58
Discharge Date and Time
Print Language: SAMI
[2025-07-07 14:05] VITALS: BP 122/71
[2025-07-07 15:00] VITALS: BP 125/83
== END 2025-07-07 16:45 | disposition home or self-care (01) ==
LOC: EMR 12:22
PROVIDERS: EMERGENCY PHYSICIAN Emergency Medicine; FAMILY PHYSICIAN Family Medicine
DX: H53.8 Other visual disturbances (principal); E11.9 Type 2 diabetes mellitus without complications; E78.00 Pure hypercholesterolemia, unspecified; G89.29 Other chronic pain; I10 Essential (primary) hypertension; Z86.73 Personal history of transient ischemic attack (TIA), and cerebral infarction without residual deficits; Z79.02 Long term (current) use of antithrombotics/antiplatelets; Z87.891 Personal history of nicotine dependence; Z98.1 Arthrodesis status
CPT/HCPCS: 99284; 70450